=== PATIENT | female | born 1960 | race Caucasian/White ===

== ENCOUNTER → 2019-10-21 | Outpatient (CLI) | payer MEDICAID ==
[~2019-10-21] MED LIST: AMOX1TAB64 PO; AMPI500C2 PO; ASPI-515 PO; CARV6.252 PO; CLIN300C8 PO; FURO20TA3 PO; LISI-170 PO; LISI5TAB7 PO; ONDA4TAB7 PO; OXYC-302; OXYC-306 PO; POTA10TA5 PO; SULF1TAB24
== END | disposition home or self-care (01) ==
LOC: CFH 14:33
PROVIDERS: ATTEND Internal Medicine Cardiovascular Disease
DX: I08.1 Rheumatic disorders of both mitral and tricuspid valves (principal); I50.22 Chronic systolic (congestive) heart failure; I11.0 Hypertensive heart disease with heart failure; F10.20 Alcohol dependence, uncomplicated; F17.200 Nicotine dependence, unspecified, uncomplicated
CPT/HCPCS: 93306